=== PATIENT | male | born 1965 | race Asian ===

== ENCOUNTER 2017-01-12 00:44 | Emergency (ER) | payer SELFPAY ==
[2017-01-12 02:23] LABS: BASOPHIL % 0.3 % (0-2); PLATELET COUNT 210 x10^3mcL (130-400); RED CELL DISTRIBUTION WIDTH 12.1 % (11.5-14.5)
[2017-01-12 02:24] LABS: CALCIUM 8.9 mg/dL (8.5-10.1); CARBON DIOXIDE 25.6 mmol/L (21-32); CHLORIDE SERUM 102 mmol/L (98-107); CREATININE SERUM 0.9 mg/dL (0.7-1.3); GFR1 > 60 mL/min; GLUCOSE SERUM 147 mg/dL (74-106); POTASSIUM SERUM 3.5 mmol/L (3.5-5.1); SODIUM SERUM 138 mmol/L (136-145)
[2017-01-12 02:28] LABS: ALBUMIN 4.1 g/dL (3.4-5.0); ALKALINE PHOSPHATASE 65 U/L (46-116); ALT/SGPT 29 U/L (16-63); AST/SGOT 20 U/L (15-37)
[2017-01-12 04:44] VITALS: BP 166/110
== END 2017-01-12 04:44 | disposition short-term general hospital (02) ==
LOC: ED 00:44
PROVIDERS: Emergency Medicine
DX: G93.9 Disorder of brain, unspecified (principal); G91.9 Hydrocephalus, unspecified; I16.0 Hypertensive urgency; R11.10 Vomiting, unspecified
CPT/HCPCS: 83880; J1885; J2270; J2405; J2550; J3490; J7030; Q0092